=== PATIENT | female | born 1980 | race Caucasian/White ===

== ENCOUNTER 2017-06-03 13:30 | Emergency (ER) | payer OTHER ==
[~2017-06-03] VITALS: Ht 157.5 cm; Wt 80.4 kg
[~2017-06-03 13:30] MED LIST: ACET325T14 PO; IBUP-1222 PO; OXYC-302 PO; PREN1TAB52 PO
[2017-06-03] MEDS ORDERED: PNV1TABL11 PO (14:12)
[2017-06-03 14:21] LABS: HEMOGLOBIN 14.3 g/dL (11.7-16.4); WHITE BLOOD COUNT 7.4 x10^3/uL (3.4-10)
[2017-06-03 14:31] LABS: BLOOD UREA NITROGEN 7 mg/dL (7-18)
[2017-06-03 14:55] VITALS: BP 113/61
== END 2017-06-03 15:14 | disposition home or self-care (01) ==
LOC: ED 15:12
DX: O23.11 Infections of bladder in pregnancy, first trimester (principal); Z3A.09 9 weeks gestation of pregnancy
CPT/HCPCS: 36415; 76801; 80048; 81001; 82040; 84702; 85025; 87086; 99285

== ENCOUNTER 2017-10-27 04:41 | Observation (INO) | payer OTHER ==
[~2017-10-27] VITALS: Ht 157.5 cm; Wt 83.2 kg
[~2017-10-27 04:41] MED LIST changes: +PNV1TABL11 PO
[2017-10-27 05:03] VITALS: BP 110/61
[2017-10-27 05:30] LABS: MICROSCOPIC INDICATED
[2017-10-27] MEDS ORDERED: TERBUTALINE 1 MG/ML, 1ML ONE (06:35)
[2017-10-27] MEDS ORDERED: TERBUTALINE 1 MG/ML, 1ML SQ ONE (07:00)
== END 2017-10-27 10:49 | disposition home or self-care (01) ==
LOC: LDOP 04:41 → LDIP 08:03
PROVIDERS: ADMIT Obstetrics & Gynecology; ATTEND Obstetrics & Gynecology
DX: O26.899 Other specified pregnancy related conditions, unspecified trimester (principal); R10.9 Unspecified abdominal pain; O24.410 Gestational diabetes mellitus in pregnancy, diet controlled; Z3A.00 Weeks of gestation of pregnancy not specified
CPT/HCPCS: 36415; 59025; 81001; 82731; 82962; 87086; 96372; 99201; G0378; J3105; G0463

== ENCOUNTER 2017-12-03 02:17 | Outpatient (CLI) | payer OTHER ==
[~2017-12-03] VITALS: Ht 157.5 cm; Wt 84.0 kg
== END 2017-12-03 02:55 | disposition home or self-care (01) ==
LOC: LDOP 02:17
PROVIDERS: ATTEND Obstetrics & Gynecology
DX: O36.8130 Decreased fetal movements, third trimester, not applicable or unspecified (principal); Z3A.35 35 weeks gestation of pregnancy
CPT/HCPCS: 59025; 99211; G0463

== ENCOUNTER 2017-12-25 06:16 | Inpatient (IN) | payer OTHER ==
[~2017-12-25] VITALS: Ht 160 cm; Wt 85.9 kg
[~2017-12-25 06:16] MED LIST changes: +METF500T27 PO
[2017-12-25] MEDS ORDERED: OXYTOCIN 30U/ 0.9% NaCL 500ML 500 ML IV PRN (06:59)
[2017-12-25] MEDS ORDERED: OXYTOCIN 30U/ 0.9% NaCL 500ML 500 ML IV ONE (06:59)
[2017-12-25] MEDS ORDERED: CALCIUM CARBONATE 500 MG TAB.CHEW PO PRN ×2 (07:00→14:00)
[2017-12-25] MEDS ORDERED: FENTANYL PF 100 MCG/2ML IV PRN (07:00)
[2017-12-25] MEDS ORDERED: ONDANSETRON 2MG/ML, 2ML IVPush PRN (07:00)
[2017-12-25] MEDS ORDERED: FENTANYL PF 100 MCG/2ML IVPush PRN (07:00)
[2017-12-25 07:18] LABS: BASOPHILS # (AUTO) 0.04 x10^3/uL (0-0.1); BASOPHILS % (AUTO) 0 % (0-1); EOSINOPHILS # (AUTO) 0.17 x10^3/uL (0-0.4); EOSINOPHILS % (AUTO) 2 % (1-7); LYMPHOCYTES # (AUTO) 2.98 x10^3/uL (1-3.4); LYMPHOCYTES % (AUTO) 32 % (22-44); MD NO; MEAN CORPUSCULAR HGB CONC 33.1 g/dL (32.4-35.8); MEAN CORPUSCULAR VOLUME 84.4 fL (80-100); MEAN PLATELET VOLUME 12.2 fL (7.4-10.4); MONOCYTES # (AUTO) 0.41 x10^3/uL (0.2-0.8); MONOCYTES % (AUTO) 5 % (2-9); NEUTROPHILS # (AUTO) 5.62 x10^3/uL (1.8-6.8); NEUTROPHILS % (AUTO) 61 % (42-75); PLATELET COUNT 121 x10^3/uL (130-400); RED BLOOD COUNT 4.92 x10^6/uL (3.82-5.3); RED CELL DISTRIBUTION WIDTH 14.7 % (9.6-15.2)
[2017-12-25] MEDS ORDERED: OXYTOCIN 30U/ 0.9% NaCL 500ML 500 ML ONE ×2 (08:17→14:19)
[2017-12-25] MEDS: LACTATED RINGERS 1,000 ML IV SCH ×2 (08:24→14:25)
[2017-12-25] MEDS ORDERED: OXYTOCIN 30U/ 0.9% NaCL 500ML 500 ML IV SCH (13:49)
[2017-12-25] MEDS: OXYTOCIN 30U/ 0.9% NaCL 500ML 500 ML IV SCH ×6 (13:49→20:59)
[2017-12-25] MEDS ORDERED: DOCUSATE 100 MG CAPSULE PO PRN (14:00)
[2017-12-25] MEDS ORDERED: ONDANSETRON 2MG/ML, 2ML IV PRN (14:00)
[2017-12-25] MEDS ORDERED: METHYLERGONOVINE 0.2 MG/ML IM PRN (14:00)
[2017-12-25] MEDS ORDERED: OXYTOCIN 10 UNITS/ML, 1ML IM PRN (14:00)
[2017-12-25] MEDS ORDERED: MAGNESIUM HYDROXIDE 8%, 30ML UDC PO PRN (14:00)
[2017-12-25] MEDS ORDERED: ACETAMINOPHEN 325 MG TABLET PO PRN ×3 (14:00)
[2017-12-25] MEDS ORDERED: OXYcodone/APAP 5/325MG TABLET PO PRN ×2 (14:00)
[2017-12-25] MEDS ORDERED: IBUPROFEN 600 MG TABLET ONE (14:19)
[2017-12-25] MEDS: IBUPROFEN 800 MG TABLET PO PRN (14:30)
[2017-12-25] MEDS ORDERED: NEWBORN KIT ONE (14:35)
[2017-12-25 16:00] VITALS: BP 115/77
[2017-12-25 19:30] VITALS: BP 121/76
[2017-12-25 21:31] LABS: BASOPHILS # (AUTO) 0.03 x10^3/uL (0-0.1); BASOPHILS % (AUTO) 0 % (0-1); EOSINOPHILS # (AUTO) 0.06 x10^3/uL (0-0.4); EOSINOPHILS % (AUTO) 1 % (1-7); LYMPHOCYTES # (AUTO) 2.41 x10^3/uL (1-3.4); LYMPHOCYTES % (AUTO) 25 % (22-44); MD NO; MEAN CORPUSCULAR HEMOGLOBIN 28.2 pg (27.0-34.8); MEAN CORPUSCULAR HGB CONC 33.3 g/dL (32.4-35.8); MEAN CORPUSCULAR VOLUME 84.6 fL (80-100); MEAN PLATELET VOLUME 13.4 fL (7.4-10.4); MONOCYTES # (AUTO) 0.52 x10^3/uL (0.2-0.8); MONOCYTES % (AUTO) 5 % (2-9); NEUTROPHILS # (AUTO) 6.84 x10^3/uL (1.8-6.8); NEUTROPHILS % (AUTO) 69 % (42-75); PLATELET COUNT 119 x10^3/uL (130-400); RED BLOOD COUNT 4.47 x10^6/uL (3.82-5.3); RED CELL DISTRIBUTION WIDTH 14.7 % (9.6-15.2)
[2017-12-26 00:15] VITALS: BP 103/64
[2017-12-26 05:00] VITALS: BP 108/73
[2017-12-26 08:45] VITALS: BP 110/68
[2017-12-26] MEDS ORDERED: PRENATAL VIT/IRON/FA 1 EACH TABLET PO SCH (09:00)
[2017-12-26 12:59] VITALS: BP 125/80
[2017-12-26] MEDS: IBUPROFEN 800 MG TABLET PO PRN (16:17)
== END 2017-12-26 16:20 | disposition home or self-care (01) | DRG 775 ==
LOC: LDIP 06:16 → 2NW 15:48
PROVIDERS: ADMIT Obstetrics & Gynecology; ATTEND Obstetrics & Gynecology
PROC: 10E0XZZ Delivery of Products of Conception, External Approach (ICD-10-PCS; principal; 2017-12-25)
PROC: 10907ZC Drainage of Amniotic Fluid, Therapeutic from Products of Conception, Via Natural or Artificial Opening (ICD-10-PCS; 2017-12-25)
DX: O41.03X0 Oligohydramnios, third trimester, not applicable or unspecified (principal); O24.420 Gestational diabetes mellitus in childbirth, diet controlled; Z37.0 Single live birth; Z3A.38 38 weeks gestation of pregnancy
CPT/HCPCS: 36415; 85025; 86850; 86900; J2590; J7120